=== PATIENT | male | born 1965 | race Caucasian/White ===

== ENCOUNTER → 2020-09-30 | Outpatient (CLI) | payer OTHER ==
[~2020-09-30] MED LIST: ADULT ASPIRIN81 MG PO; ALLOPURINOL300 MG PO; CEFUROXIME500 MG PO; CEPHALEXIN500 M1 PO; COLCHICINE 0.60.6 MG PO; COLCHICINE0.6 M1 PO; ELIQUIS 5 MG TAB5 MG PO; ELIQUIS5 MG PO; IMDUR ER TAB 3030 MG PO; LASIX40 MG PO; NORCO 7.5-3251 EACH PO; PERCOCET 5/325 T1 EA PO; TOPROL XL200 MG PO; VASOTEC20 MG PO
== END ==
LOC: EXRD 16:00
DX: N17.9 Acute kidney failure, unspecified (principal)
CPT/HCPCS: 76775

== ENCOUNTER → 2020-10-30 | Outpatient (CLI) | payer OTHER ==
[2020-10-30 12:49] LABS: BUN/CREATININE RATIO 34 (0-10)
[2020-10-31 11:15] LABS: CREATININE, URINE 95.2 mg/dL (Not Estab.)
== END ==
LOC: LAB 11:20
PROVIDERS: Internal Medicine Nephrology
DX: N17.9 Acute kidney failure, unspecified (principal)
CPT/HCPCS: 36415; 80053; 81001; 82043; 82570; 84156

== ENCOUNTER 2020-11-18 11:35 | Emergency (ER) | payer OTHER ==
[~2020-11-18 11:35] MED LIST changes: -CEPHALEXIN500 M1 PO; -PERCOCET 5/325 T1 EA PO
[2020-11-18 13:14] LABS: HEMOGLOBIN 14.8 gm/dl (14.0-17.5); RED BLOOD COUNT 4.87 M/UL (4.20-5.50); WHITE BLOOD COUNT 7.7 K/UL (4.5-11.0)
[2020-11-18 13:45] LABS: BUN/CREATININE RATIO 33 (0-10)
[2020-11-18] MEDS ORDERED: PERCOCET 5/325 T1 EA PO (14:27)
[2020-11-18] MEDS ORDERED: CEPHALEXIN500 M1 PO (14:27)
== END 2020-11-18 14:55 | disposition home or self-care (01) ==
LOC: ER1 11:35
PROVIDERS: Physician Assistant Medical
DX: S80.01XA Contusion of right knee, initial encounter (principal); M10.9 Gout, unspecified; L03.115 Cellulitis of right lower limb; E11.9 Type 2 diabetes mellitus without complications; I10 Essential (primary) hypertension; I48.91 Unspecified atrial fibrillation; Z79.01 Long term (current) use of anticoagulants; W19.XXXA Unspecified fall, initial encounter
CPT/HCPCS: 73564; 73590; 73630; 80053; 84550; 85025; 99284

== ENCOUNTER → 2021-02-18 | Outpatient (CLI) | payer OTHER ==
[~2021-02-18] MED LIST changes: +CEPHALEXIN500 M1 PO; +PERCOCET 5/325 T1 EA PO
[2021-02-18 10:44] LABS: BUN/CREATININE RATIO 22 (0-10)
[2021-02-19 09:13] LABS: CREATININE, URINE 36.3 mg/dL (Not Estab.); MICROALB/CREAT RATIO <8 (0-29)
== END ==
LOC: LAB 09:21
PROVIDERS: Internal Medicine Nephrology
DX: N17.9 Acute kidney failure, unspecified (principal)
CPT/HCPCS: 36415; 80053; 81001; 82043; 82570; 84156

== ENCOUNTER 2021-10-01 12:40 | Emergency (ER) | payer OTHER ==
[2021-10-01 14:21] LABS: HEMOGLOBIN 14.2 gm/dl (14.0-17.5); RED BLOOD COUNT 4.55 M/UL (4.20-5.50); WHITE BLOOD COUNT 8.2 K/UL (4.5-11.0)
[2021-10-01 14:44] LABS: BUN/CREATININE RATIO 26 (0-10)
[2021-10-01] MEDS ORDERED: Voltaren Gel 1 % TOP (16:26)
== END 2021-10-01 16:39 | disposition home or self-care (01) ==
LOC: ER1 12:40
PROVIDERS: Physician Assistant Medical
DX: G89.29 Other chronic pain (principal); M54.6 Pain in thoracic spine; I48.91 Unspecified atrial fibrillation; E11.9 Type 2 diabetes mellitus without complications; I10 Essential (primary) hypertension
CPT/HCPCS: 80053; 81001; 85025; 96374; 96375; 99283; J1885; J2930

== ENCOUNTER → 2021-10-31 | Outpatient (CLI) | payer OTHER ==
[~2021-10-31] MED LIST changes: +Voltaren Gel 1 % TOP
== END ==
LOC: RAD 10:56
DX: S86.811A Strain of other muscle(s) and tendon(s) at lower leg level, right leg, initial encounter (principal)
CPT/HCPCS: 73562

== ENCOUNTER → 2021-12-15 | Outpatient (CLI) | payer OTHER ==
[2021-12-15 13:17] LABS: BUN/CREATININE RATIO 28 (0-10)
[2021-12-16 10:14] LABS: CREATININE, URINE 66.6 mg/dL (Not Estab.); MICROALB/CREAT RATIO <5 (0-29)
== END ==
LOC: LAB 11:51
PROVIDERS: Internal Medicine Nephrology
DX: N18.9 Chronic kidney disease, unspecified (principal)
CPT/HCPCS: 80053; 81001; 82043; 82570; 84156